=== PATIENT | female | born 1975 | race Asian ===

== ENCOUNTER 2016-09-23 12:48 | Outpatient (CLI) | payer OTHER ==
[~2016-09-23 12:48] MED LIST: AMBIEN5 MG PO; LINZESS290 MCG OR; PANT40TA PO; ZANTAC 75 PO
[2016-09-23 13:28] LABS: PLATELET COUNT 374 K/uL (152-353)
[2016-09-23 13:42] LABS: POTASSIUM 3.4 mmol/L (3.6-5.2); SODIUM 132 mmol/L (136-145)
== END 2016-09-23 13:48 | disposition home or self-care (01) ==
LOC: LABW 12:48
PROVIDERS: Nurse Practitioner Family
DX: R10.12 Left upper quadrant pain (principal)
CPT/HCPCS: 36415; 80053; 82150; 83690; 85027

== ENCOUNTER 2016-11-28 12:49 | Outpatient (CLI) | payer OTHER | END 2016-11-28 18:44 | disposition home or self-care (01) | LOC: ED 12:49 → INF 12:49 → ED 18:44 | DX: B00.1 Herpesviral vesicular dermatitis (principal); R51 Headache | CPT/HCPCS: 96372; J1885; J2175; J2550; J2930 ==

== ENCOUNTER 2017-03-04 02:59 | Outpatient (CLI) | payer OTHER ==
[2017-03-04] MEDS ORDERED: PHENTERMINE37.5 MG PO (03:15)
== END 2017-03-04 03:03 | disposition short-term general hospital (02) ==
LOC: AMB 02:59
DX: R41.82 Altered mental status, unspecified (principal); R53.1 Weakness
CPT/HCPCS: A0425; A0427

== ENCOUNTER 2017-03-04 03:05 | Observation (INO) | payer OTHER ==
[2017-03-04] VITALS (9 sets, daily range): BP systolic 99–149; BP diastolic 66–96; TEMP 96.1–98.7; Ht 165.1 cm; Wt 107.2 kg
[~2017-03-04] VITALS: Ht 165.1 cm; Wt 107.2 kg
[2017-03-04] MEDS ORDERED: PHENTERMINE37.5 MG PO (03:15)
[2017-03-04 03:41] LABS: PLATELET COUNT 350 K/uL (152-353)
[2017-03-05] VITALS: BP 144/77; TEMP 98.6
[2017-03-05 04:00] VITALS: BP 105/62; TEMP 97.7
[2017-03-05 05:32] LABS: PLATELET COUNT 296 K/uL (152-353)
[2017-03-05 06:07] LABS: POTASSIUM 3.5 mmol/L (3.6-5.2); SODIUM 137 mmol/L (136-145)
[2017-03-05 08:00] VITALS: BP 108/52; TEMP 97.8
== END 2017-03-05 15:15 | disposition home or self-care (01) ==
LOC: ED 03:05 → MED/SURG 04:20
PROVIDERS: Emergency Medicine
DX: R55 Syncope and collapse (principal); E11.9 Type 2 diabetes mellitus without complications; E87.6 Hypokalemia; N39.498 Other specified urinary incontinence; R00.0 Tachycardia, unspecified
CPT/HCPCS: 36415; 80053; 80307; 81000; 82948; 83036; 83735; 85027; 93005; 96365; 96366; 96372; 99220; 99283; G0378; G0479; J1650; J1885; J3490

== ENCOUNTER 2017-07-18 12:54 | Outpatient (CLI) | payer OTHER ==
[~2017-07-18 12:54] MED LIST changes: +PHENTERMINE37.5 MG PO
== END 2017-07-18 19:17 | disposition home or self-care (01) ==
LOC: MAMMO 12:54
DX: Z12.31 Encounter for screening mammogram for malignant neoplasm of breast (principal)

== ENCOUNTER 2018-01-03 12:42 | Outpatient (CLI) | payer OTHER ==
[2018-01-03 13:03] LABS: PLATELET COUNT 411 K/uL (152-353)
[2018-01-03 13:58] LABS: POTASSIUM 3.7 mmol/L (3.6-5.2)
== END 2018-01-03 20:25 | disposition home or self-care (01) ==
LOC: LABW 12:42
PROVIDERS: Family Medicine
DX: R68.82 Decreased libido (principal); D72.828 Other elevated white blood cell count
CPT/HCPCS: 36415; 80053; 82306; 82607; 82670; 83001; 84402; 84403; 84436; 84443; 84481; 85027; 86376

== ENCOUNTER 2018-06-19 07:54 | Outpatient (CLI) | payer OTHER ==
[2018-06-19] MEDS ORDERED: HYDR5TAB9 PO (08:21)
[2018-06-19] MEDS ORDERED: TRAM50TA PO (08:22)
== END 2018-06-19 07:55 | disposition short-term general hospital (02) ==
LOC: AMB 07:54
DX: M54.89 Other dorsalgia (principal); V43.52XA Car driver injured in collision with other type car in traffic accident, initial encounter; Y93.89 Activity, other specified; Y92.89 Other specified places as the place of occurrence of the external cause
CPT/HCPCS: A0425; A0429

== ENCOUNTER 2018-06-19 07:57 | Emergency (ER) | payer OTHER ==
[~2018-06-19] VITALS: Ht 165.1 cm; Wt 104.3 kg
[2018-06-19 07:57] VITALS: TEMP 97.9
[2018-06-19] MEDS ORDERED: HYDR5TAB9 PO (08:21)
[2018-06-19] MEDS ORDERED: TRAM50TA PO (08:22)
[2018-06-19 09:18] LABS: PLATELET COUNT 313 K/uL (152-353)
[2018-06-19 09:23] LABS: POTASSIUM 3.8 mmol/L (3.6-5.2)
[2018-06-19 10:26] VITALS: BP 162/99
== END 2018-06-19 10:27 | disposition home or self-care (01) ==
LOC: ED 07:57
DX: S00.93XA Contusion of unspecified part of head, initial encounter (principal); S70.01XA Contusion of right hip, initial encounter; S10.93XA Contusion of unspecified part of neck, initial encounter; S30.0XXA Contusion of lower back and pelvis, initial encounter; V49.9XXA Car occupant (driver) (passenger) injured in unspecified traffic accident, initial encounter
CPT/HCPCS: 36415; 80053; 85027; 96372; 99283; J1885

== ENCOUNTER 2018-07-19 13:33 | Outpatient (CLI) | payer OTHER ==
[~2018-07-19 13:33] MED LIST changes: +HYDR5TAB9 PO; +TRAM50TA PO
== END 2018-07-19 21:21 | disposition home or self-care (01) ==
LOC: MRI 13:33
DX: M54.17 Radiculopathy, lumbosacral region (principal); M54.6 Pain in thoracic spine

== ENCOUNTER 2020-04-21 12:36 | Inpatient (IN) | payer OTHER ==
[~2020-04-21] VITALS: Ht 165.1 cm; Wt 104.3 kg
[~2020-04-21 12:36] MED LIST changes: +HYDR10TA47 PO; +HYDR25TA60 PO; +LIPITOR20 MG PO; +METF500T PO; +PANTOPRAZOLE 40MG TA PO; +PROAIR HFA108 MCG/AC INH; +TIZA4TAB5 PO; +XYZAL ALLERGY 245 MG PO
[2020-04-21 13:30] VITALS: BP 268/92; TEMP 98.3; Ht 165.1 cm; Wt 104.3 kg
[2020-04-21 14:01] LABS: PLATELET COUNT 309 K/uL (152-353)
[2020-04-21 14:15] LABS: POTASSIUM 3.4 mmol/L (3.6-5.2)
[2020-04-21 16:00] VITALS: BP 136/78; TEMP 98.4
[2020-04-21 20:00] VITALS: BP 134/75; BP 136/73; TEMP 100; TEMP 97.5
[2020-04-22] VITALS: BP 103/53; TEMP 98.8
[2020-04-22 03:55] VITALS: BP 118/79; TEMP 97.8
[2020-04-22 06:17] LABS: PLATELET COUNT 304 K/uL (152-353)
[2020-04-22 06:41] LABS: POTASSIUM 3.2 mmol/L (3.6-5.2)
[2020-04-22 08:00] VITALS: BP 117/72; TEMP 97.6
[2020-04-22 12:00] VITALS: BP 108/72; TEMP 97.3
[2020-04-22 16:00] VITALS: BP 116/87; TEMP 97.6
[2020-04-22 20:00] VITALS: BP 93/47; TEMP 97.4
[2020-04-23] VITALS: BP 144/76; TEMP 97.8
[2020-04-23 04:18] VITALS: BP 96/53; TEMP 98.3
[2020-04-23 05:38] LABS: PLATELET COUNT 330 K/uL (152-353)
[2020-04-23 06:26] LABS: POTASSIUM 3.7 mmol/L (3.6-5.2)
[2020-04-23 08:00] VITALS: BP 122/83; TEMP 97.6
[2020-04-23 12:00] VITALS: BP 120/71; TEMP 97.6
[2020-04-23 16:00] VITALS: BP 129/72; TEMP 97.8
[2020-04-23 19:44] VITALS: BP 116/70; TEMP 97.7
[2020-04-24] VITALS: BP 132/73; TEMP 97.4
[2020-04-24 04:00] VITALS: BP 134/85; TEMP 97.4
[2020-04-24 05:06] LABS: POTASSIUM 3.9 mmol/L (3.6-5.2)
[2020-04-24 06:32] LABS: PLATELET COUNT 237 K/uL (152-353)
[2020-04-24 08:00] VITALS: BP 152/90; TEMP 97.7
[2020-04-24 12:00] VITALS: BP 131/89; TEMP 97.6
== END 2020-04-24 16:20 | disposition home or self-care (01) | DRG 177 ==
LOC: MED/SURG 12:36
PROVIDERS: ADMIT Family Medicine
DX: U07.1 COVID-19 (principal); J18.8 Other pneumonia, unspecified organism; E46 Unspecified protein-calorie malnutrition; E66.8 Other obesity; E86.0 Dehydration; D64.89 Other specified anemias; D72.818 Other decreased white blood cell count; F51.09 Other insomnia not due to a substance or known physiological condition; E11.9 Type 2 diabetes mellitus without complications; I10 Essential (primary) hypertension
CPT/HCPCS: 36415; 80053; 82728; 83036; 83735; 83880; 84100; 85027; 85379; 86140; 87040; 93005; 94667; 94668; 94760; J0456; J0696; J1650; J1815; J1885; J2270; J2405; J2550

== ENCOUNTER 2020-05-18 18:23 | Outpatient (CLI) | payer OTHER | END 2020-05-18 23:58 | disposition home or self-care (01) | LOC: RAD 18:23 | DX: U07.1 COVID-19 (principal) ==

== ENCOUNTER 2021-09-18 08:39 | Emergency (ER) | payer OTHER ==
[~2021-09-18] VITALS: Ht 165.1 cm; Wt 99.8 kg
[2021-09-18 08:53] VITALS: TEMP 100.5
[2021-09-18 09:57] LABS: PLATELET COUNT 336 K/uL (152-353)
[2021-09-18 10:02] LABS: POTASSIUM 3.3 mmol/L (3.6-5.2)
[2021-09-18 10:50] VITALS: BP 159/71
== END 2021-09-18 10:50 | disposition home or self-care (01) ==
LOC: ED 08:39
PROVIDERS: Hospitalist
DX: J40 Bronchitis, not specified as acute or chronic (principal); J06.9 Acute upper respiratory infection, unspecified; Z20.822 Contact with and (suspected) exposure to COVID-19
CPT/HCPCS: 80048; 85027; 87502; 87635; 87651; 96372; 99283; J0696; J2930; U0003